=== PATIENT | female | born 1955 | race Two or more races ===

== ENCOUNTER 2019-08-06 03:06 | Inpatient (IN) | payer MEDICARE, MEDICAID ==
[~2019-08-06] VITALS: Ht 154.9 cm; Wt 52.6 kg
[2019-08-06] MEDS ORDERED: ACETAMINOPHEN 325 MG TABLET PO PRN (05:00)
[2019-08-06] MEDS ORDERED: BLOOD SUGAR DIAGNOSTIC 1 EACH STRIP IN ONE (05:00)
[2019-08-06] MEDS ORDERED: MAG HYDROX/AL HYDROX/SIMETH 30 ML UDC PO PRN (05:00)
[2019-08-06] MEDS ORDERED: MAGNESIUM HYDROXIDE 30 ML UDC PO PRN (05:00)
--- NOTE | 2019-08-06 05:51 | NUR ---
Received patient for admission from [facility],alert,oriented x 2 and ambulatory with no s/s of acute distress noted.Will endorse to AM shift RN to continue admission assessment .
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
[2019-08-06 08:00] VITALS: BP 149/98
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
[2019-08-06 16:00] VITALS: BP 136/62
[2019-08-06 16:59] LABS: APPEARANCE,URINE Clear (CLEAR); BILIRUBIN,URINE Negative (NEGATIVE); BLOOD, URINE Negative Ery/uL (NEGATIVE); COLOR,URINE Yellow (YELLOW); KETONES,URINE Negative (NEGATIVE); LEUKOCYTE ESTERASE ,URINE Negative (NEGATIVE); NITRITE, URINE Negative (NEGATIVE); PROTEIN,URINE Negative (NEGATIVE); UGLUCOSE Negative (NEGATIVE); UROBILINOGEN,URINE 0.2 EU/dL (0.2)
[2019-08-06] MEDS ORDERED: LEVO50TA8 PO (18:57)
[2019-08-06] MEDS ORDERED: ATOR10TA PEG (18:57)
[2019-08-06] MEDS ORDERED: QUET150T2 PO (18:57)
[2019-08-06] MEDS ORDERED: BENZ0.5T43 PO (18:57)
[2019-08-06] MEDS ORDERED: METF-440 PO (18:57)
[2019-08-06] MEDS ORDERED: BUSP5TAB3 PO (18:57)
[2019-08-06] MEDS ORDERED: BUSP10TA3 PO (18:57)
[2019-08-06] MEDS ORDERED: DIVA250T47 PO (18:57)
[2019-08-06] MEDS ORDERED: DORZ10DR11 EACHEYE (18:58)
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
--- NOTE | 2019-08-06 19:52 | NUR ---
GPS/RN-NOTES RECEIVED T.O ORDER FROM DR. VANG OF SEROQUEL 300MG P.O QPM,COGENTIN 0.5MG P.O BID,BUSPAR 5MG P.O QPM, BUSPAR 10MG P.O QAM ,DEPAKOTE 750MG P.O QPM AND RESTORIL 7.5MG P.O QHS PRN.
[2019-08-06 20:01] VITALS: BP 132/79
--- NOTE | 2019-08-06 20:06 | NUR ---
[facility] PAGED FOR DOCTOR ADJUSTER LEADER. PATIENT HAS ABD BINDER SHE WEARS AT HOME FOR ABD HERNIA. NO ORDER TO CONTINUE ABD BINDER. DR. PADGETT CALLED BACK. ORDER RECIEVED FOR ABD BINDER. STATES NO NEED FOR ONE TO ONE BUT TO CONTINUE LINE OF SITE FOR TREATMENT.
--- NOTE | 2019-08-06 20:16 | NUR ---
GPS/RN-NOTES PATIENT LAYING IN BED AWAKE,ALERT NO ACUTE DISTRESS NOTED. ENDORSE TO NIGHT NURSE FOR CONTINUITY OF CARE AND MONITORING FOR SAFETY AND BEHAVIOR.
[2019-08-06] MEDS ORDERED: QUETIAPINE FUMARATE 100 MG TABLET PO SCH (20:30)
[2019-08-06] MEDS ORDERED: DIVALPROEX SODIUM 500 MG TABLET.DR PO SCH (20:30)
[2019-08-06] MEDS ORDERED: TEMAZEPAM 7.5 MG CAPSULE PO PRN (20:30)
[2019-08-06] MEDS ORDERED: busPIRone 5 MG TABLET PO SCH (20:30)
[2019-08-06] MEDS: BENZTROPINE MESYLATE (1 MG) 1 MG TABLET PO SCH (21:03)
--- NOTE | 2019-08-06 21:04 | NUR ---
PATIENT REQUESTED TEMAZEPAM PRN TEMAZEPAM 7.5MG ADMINISTERED PRN ORDERED.
[2019-08-07 07:47] LABS: CHOLESTEROL 102 mg/dL (<200); HDL CHOLESTEROL 39 mg/dL (40-60); LDL 51 mg/dL (0-99); TRIGLYCERIDES 69 mg/dL (30-150)
[2019-08-07 08:00] VITALS: BP 130/83
[2019-08-07] MEDS: DIVALPROEX SODIUM 250 MG TABLET.DR PO SCH ×2 (08:56→16:38)
[2019-08-07] MEDS: BENZTROPINE MESYLATE (1 MG) 1 MG TABLET PO SCH ×2 (08:56→16:37)
[2019-08-07] MEDS: busPIRone 5 MG TABLET PO SCH ×4 (08:56→21:33)
[2019-08-07] MEDS: QUETIAPINE FUMARATE 100 MG TABLET PO SCH ×3 (08:56→21:36)
--- NOTE | 2019-08-07 11:54 | NUR ---
Individual Intervention: Pt stated that she wanted to speak to the SW about her medications and treatment plan. SW stated that she does not want to return to her home with her brother because he does not want her to be there. SW stated that she has not had the chance to speak to her brother yet. SW stated that she would keep her updated regarding the discharge plan.
--- NOTE | 2019-08-07 15:05 | NUR ---
Family Contact: SW spoke to the pts brother, Franc ([phone]), and he stated that he would like the pt to return to their home as he had promised his mother. He stated that he would like the pts medications to be adjusted and that he would not accept her back at their home until she is considered to be stable. ROBERTO stated that we would not discharge the pt while she is unstable.
--- NOTE | 2019-08-07 15:32 | NUR ---
Initial Discharge Plan: Pt currently resides at her home with her brother, Franc ([phone]), located at [address] [place] [address]. Per pt, she is uncertain about where she will be discharged to. SW will work with the pt and the MD regarding appropriate discharge planning. SW will form a safe and proper discharge plan.
[2019-08-07 16:00] VITALS: BP 127/56
[2019-08-07 20:06] VITALS: BP 126/77
[2019-08-08 08:00] VITALS: BP 124/74
[2019-08-08] MEDS: busPIRone 5 MG TABLET PO SCH ×4 (09:34→21:23)
[2019-08-08] MEDS: QUETIAPINE FUMARATE 100 MG TABLET PO SCH ×3 (09:35→21:23)
[2019-08-08] MEDS: BENZTROPINE MESYLATE (1 MG) 1 MG TABLET PO SCH ×2 (09:35→16:26)
[2019-08-08] MEDS: DIVALPROEX SODIUM 250 MG TABLET.DR PO SCH ×2 (09:35→16:27)
[2019-08-08 16:00] VITALS: BP 103/57
[2019-08-08 20:50] VITALS: BP 129/72
--- NOTE | 2019-08-09 07:30 | NUR ---
INITAL PT RESTING QUIETLY RESPIRATION EVEN NO DISTRESS NOTED WILL CONTINUE TO MONITOR
[2019-08-09 08:00] VITALS: BP 134/75
[2019-08-09] MEDS: busPIRone 5 MG TABLET PO SCH ×4 (08:56→21:02)
[2019-08-09] MEDS: DIVALPROEX SODIUM 250 MG TABLET.DR PO SCH ×2 (08:56→17:06)
[2019-08-09] MEDS: QUETIAPINE FUMARATE 100 MG TABLET PO SCH ×3 (08:57→21:01)
[2019-08-09] MEDS: BENZTROPINE MESYLATE (1 MG) 1 MG TABLET PO SCH ×2 (08:57→17:06)
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
--- NOTE | 2019-08-09 15:12 | NUR ---
Group Note: Pt attended group therapy session on 08/09/19 at 2:30pm discussing goals for while they are in the hospital and after discharge but was not engaged and did not participate due to mental instability and presenting with labile mood.
[2019-08-09 16:00] VITALS: BP 127/69
--- NOTE | 2019-08-09 17:59 | NUR ---
MEDICATION PT REFUSED ALL 1700 MEDICATIONS ASKED SEVERAL TIMES. PT UNABLE TO FOCUS EXTREMELY ANXIOUS AND THINKS SHE IS TAKING TO MANY MEDICATIONS THAT ARE MAKING HER CRAZY.
[2019-08-09 20:53] VITALS: BP 148/86
[2019-08-10 08:00] VITALS: BP 118/92
[2019-08-10] MEDS: QUETIAPINE FUMARATE 100 MG TABLET PO SCH ×3 (08:21→21:21)
[2019-08-10] MEDS: BENZTROPINE MESYLATE (1 MG) 1 MG TABLET PO SCH ×2 (08:24→16:33)
[2019-08-10] MEDS: DIVALPROEX SODIUM 250 MG TABLET.DR PO SCH ×2 (08:24→16:34)
[2019-08-10] MEDS: busPIRone 5 MG TABLET PO SCH ×4 (08:26→21:22)
[2019-08-10 16:25] VITALS: BP 138/73
[2019-08-10 21:03] VITALS: BP 143/93
[2019-08-11 08:00] VITALS: BP 110/64
[2019-08-11] MEDS: DIVALPROEX SODIUM 250 MG TABLET.DR PO SCH ×2 (08:49→17:14)
[2019-08-11] MEDS: QUETIAPINE FUMARATE 100 MG TABLET PO SCH ×3 (08:49→21:10)
[2019-08-11] MEDS: BENZTROPINE MESYLATE (1 MG) 1 MG TABLET PO SCH ×2 (08:49→17:15)
[2019-08-11] MEDS: busPIRone 5 MG TABLET PO SCH ×4 (08:50→21:10)
[2019-08-11] MEDS ORDERED: DEXTROSE 50%-WATER 50 ML DISP.SYRIN IV PRN (09:30)
[2019-08-11] MEDS: BLOOD SUGAR DIAGNOSTIC 1 EACH STRIP IN SCH ×3 (12:28→21:50)
[2019-08-11] MEDS: INSULIN REGULAR, HUMAN 100 UNIT/ML 3 ML VIAL SQ PRN ×2 (12:33→21:50)
[2019-08-11 16:04] VITALS: BP 147/94
[2019-08-11] MEDS ORDERED: TIMOLOL MAL/DORZOLAM HCL OPHTH 10 ML BOTTLE EACHEYE SCH (17:00)
[2019-08-11] MEDS: TIMOLOL 0.5% SOLN OPHTH 5 ML BOTTLE EACHEYE SCH (17:15)
[2019-08-11] MEDS: DORZOLAMIDE OPTH 2% 10 ML BOTTLE EACHEYE SCH (17:15)
[2019-08-11 19:54] VITALS: BP 130/76
--- NOTE | 2019-08-11 21:51 | NUR ---
RN NOTES : PT. BLOOD SUGAR HS # 153 MG DL , PT. REFUSED TO TAKING INSULIN REGULAR , ENCOURAGED X3 BUT PT. STILL REFUSED , PER PT. GIVE ME WATER TO DRINK.
[2019-08-12 07:23] LABS: BASOPHILS % (AUTO) 0.9 % (0.0-2.0); EOSINOPHILS % (AUTO) 6.1 % (0.0-6.0); HEMATOCRIT 41 % (33-45); HEMOGLOBIN 13.6 g/dL (11.5-14.8); LYMPHOCYTES # (AUTO) 1.7 /CMM (0.8-4.8); LYMPHOCYTES % (AUTO) 35.4 % (20.0-44.0); MEAN CORPUSCULAR HGB CONC 34 g/dl (31.0-36.0); MEAN CORPUSCULAR VOLUME 99 fL (82-100); MONOCYTES # (AUTO) 0.4 /CMM (0.1-1.30); MONOCYTES % (AUTO) 9.3 % (2.0-12.0); NEUTROPHILS # (AUTO) 2.3 /CMM (1.8-8.9); NEUTROPHILS % (AUTO) 48.3 % (43.0-81.0); PLATELET COUNT (AUTO) 152 /CMM (150-450); RED BLOOD CELL COUNT(AUTO) 4.09 MIL/uL (4.0-5.2); WHITE BLOOD COUNT (AUTO) 4.7 K/uL (4.3-11.0)
[2019-08-12] MEDS: BLOOD SUGAR DIAGNOSTIC 1 EACH STRIP IN SCH ×4 (07:30→22:01)
[2019-08-12 07:36] LABS: CALCIUM, SERUM 9.9 mg/dL (8.5-10.1); CREATININE 0.7 mg/dL (0.6-1.3); MAGNESIUM 1.7 mg/dL (1.8-2.4); PHOSPHORUS 3.4 mg/dL (2.5-4.9); POTASSIUM 4.2 mmol/L (3.5-5.1)
[2019-08-12 07:51] LABS: THYROID STIMULATING HORMONE 3.096 uIU/mL (0.358-3.74)
[2019-08-12 08:00] VITALS: BP 147/89
[2019-08-12] MEDS ORDERED: MAGNESIUM OXIDE 400 MG TABLET PO ONE (08:30)
[2019-08-12] MEDS: BENZTROPINE MESYLATE (1 MG) 1 MG TABLET PO SCH ×2 (08:50→16:39)
[2019-08-12] MEDS: QUETIAPINE FUMARATE 100 MG TABLET PO SCH ×3 (08:51→21:01)
[2019-08-12] MEDS: LEVOTHYROXINE SODIUM 50 MCG TABLET PO SCH (08:51)
[2019-08-12] MEDS: DIVALPROEX SODIUM 250 MG TABLET.DR PO SCH ×2 (08:51→16:39)
[2019-08-12] MEDS: DORZOLAMIDE OPTH 2% 10 ML BOTTLE EACHEYE SCH ×2 (09:00→16:52)
[2019-08-12] MEDS: TIMOLOL 0.5% SOLN OPHTH 5 ML BOTTLE EACHEYE SCH ×2 (09:00→16:51)
--- NOTE | 2019-08-12 09:00 | NUR ---
RN NOTES PATIENT BS IS 260 MG/DL. PATIENT REFUSED INSULIN COVERAGE AFTER EXPLAINING THE RISKS AND BENEFITS X3. WILL CONTINUE TO MONITOR.
[2019-08-12] MEDS: ATORVASTATIN 10 MG TABLET PEG SCH (09:33)
[2019-08-12] MEDS: busPIRone 5 MG TABLET PO SCH ×3 (09:41→16:40)
[2019-08-12] MEDS: INSULIN REGULAR, HUMAN 100 UNIT/ML 3 ML VIAL SQ PRN ×2 (12:00→22:01)
--- NOTE | 2019-08-12 15:43 | NUR ---
GROUP NOTE: SW encouraged pt to participate in group on this present day discussing "discharge planning." Pt was present but was crying throughout the session. Pt does not demonstrate mental stability and was unable to engage in group due her episodes of lability.
[2019-08-12 16:00] VITALS: BP 150/81
--- NOTE | 2019-08-12 16:19 | NUR ---
Individual Intervention: SW spoke to the pt about her discharge plan and she stated that she was not sure if she can return to living with her brother. The SW stated that he had already agreed but the pt stated that she wanted him to treat her better. SW stated that she can be discharged to a SNF if she was unsure and the pt stated that she was still not sure.
[2019-08-12 20:33] VITALS: BP 141/73
--- NOTE | 2019-08-12 22:08 | NUR ---
RN NOTES : PT. BLOOD SUGAR HS # 231 MG DL , PT. REFUSED TO TAKING INSULIN REGULAR , ENCOURAGED X3 BUT PT. STILL REFUSED , PER PT. NO LET ME SLEEP. CONTINUE TO MONITOR.
[2019-08-13] MEDS: LEVOTHYROXINE SODIUM 50 MCG TABLET PO SCH (07:30)
[2019-08-13 08:00] VITALS: BP 135/67
[2019-08-13] MEDS: BLOOD SUGAR DIAGNOSTIC 1 EACH STRIP IN SCH ×4 (08:11→21:42)
[2019-08-13] MEDS: DIVALPROEX SODIUM 250 MG TABLET.DR PO SCH ×2 (08:28→16:49)
[2019-08-13] MEDS: busPIRone 5 MG TABLET PO SCH ×4 (08:28→16:50)
[2019-08-13] MEDS: ATORVASTATIN 10 MG TABLET PEG SCH (08:47)
[2019-08-13] MEDS: QUETIAPINE FUMARATE 100 MG TABLET PO SCH ×3 (08:47→21:16)
[2019-08-13] MEDS: BENZTROPINE MESYLATE (1 MG) 1 MG TABLET PO SCH ×2 (08:47→16:54)
[2019-08-13] MEDS: DORZOLAMIDE OPTH 2% 10 ML BOTTLE EACHEYE SCH ×2 (09:00→16:57)
[2019-08-13] MEDS: TIMOLOL 0.5% SOLN OPHTH 5 ML BOTTLE EACHEYE SCH ×2 (09:00→16:50)
--- NOTE | 2019-08-13 09:37 | NUR ---
SNF Referral: SW faxed a referral to [facility] with attention to Chuy Solano and [place] to the fax number: [phone].
[2019-08-13] MEDS: INSULIN REGULAR, HUMAN 100 UNIT/ML 3 ML VIAL SQ PRN (11:57)
--- NOTE | 2019-08-13 13:25 | NUR ---
gps back tacker: notes pt refused buspar 15mg po x 3.
--- NOTE | 2019-08-13 14:48 | NUR ---
SNF Referral: Xiomara ([phone]) from [facility] contacted the SW and stated that the pt was accepted to their facility.
[2019-08-13 16:00] VITALS: BP 140/77
[2019-08-13 20:28] VITALS: BP 145/86
--- NOTE | 2019-08-13 21:42 | NUR ---
GPS RN NOTES: PT BLOOD SUGAR WAS 146 MG/DL. PT REFUSED REGULAR INSULIN PER SLIDING SCALE OFFERED X3 EXPLAINED RISKS AND BENEFITS BUT PT STILL REFUSED. PT STATED, " I DON'T NEED ANYTHING" .
[2019-08-14] MEDS: INSULIN REGULAR, HUMAN 100 UNIT/ML 3 ML VIAL SQ PRN ×2 (01:58→21:51)
[2019-08-14] MEDS: LEVOTHYROXINE SODIUM 50 MCG TABLET PO SCH ×2 (07:30→08:08)
[2019-08-14] MEDS: BLOOD SUGAR DIAGNOSTIC 1 EACH STRIP IN SCH ×5 (07:30→21:22)
--- NOTE | 2019-08-14 07:30 | NUR ---
RN NOTE: PATIENT REFUSED 0730 ACCU CHECK x3. RISK AND BENEFITS EXPLAINED.
[2019-08-14 08:00] VITALS: BP 138/90
[2019-08-14] MEDS: QUETIAPINE FUMARATE 100 MG TABLET PO SCH ×4 (08:08→21:16)
[2019-08-14] MEDS: BENZTROPINE MESYLATE (1 MG) 1 MG TABLET PO SCH ×3 (08:08→17:54)
[2019-08-14] MEDS: busPIRone 5 MG TABLET PO SCH ×5 (08:09→17:54)
[2019-08-14] MEDS: TIMOLOL 0.5% SOLN OPHTH 5 ML BOTTLE EACHEYE SCH ×3 (08:09→17:00)
[2019-08-14] MEDS: ATORVASTATIN 10 MG TABLET PEG SCH ×2 (08:09→09:00)
[2019-08-14] MEDS: DORZOLAMIDE OPTH 2% 10 ML BOTTLE EACHEYE SCH ×3 (08:09→17:00)
[2019-08-14] MEDS: DIVALPROEX SODIUM 250 MG TABLET.DR PO SCH ×3 (08:09→17:54)
--- NOTE | 2019-08-14 12:00 | NUR ---
GROUP NOTE: SW encouraged pt to participate in group on this present day discussing "positive coping skills." Pt was present but thought content was disorganized and was not making sense.
--- NOTE | 2019-08-14 15:58 | NUR ---
Group Note: SW encouraged pt to participate in group on 08/14/19 at 2pm discussing "discharge planning." Pt was present but was crying throughout the session. Pt does not demonstrate mental stability and was unable to engage in group due her episodes of lability.
[2019-08-14 16:00] VITALS: BP 137/57
--- NOTE | 2019-08-14 17:30 | NUR ---
RN NOTE: 1730 BLOOD SUGAR CHECK OF 154 mg/dL. REGULAR INSULIN 2 UNITS PER SLIDING SCALE. PATIENT REFUSED INSULIN x3. RISK AND BENEFITS EXPLAINED.
--- NOTE | 2019-08-14 19:10 | NUR ---
RN NOTE: PATIENT REFUSED TO WEAR ID BAND. RISK AND BENEFITS EXPLAINED.
[2019-08-14 20:29] VITALS: BP 151/82
--- NOTE | 2019-08-14 21:22 | NUR ---
GPS RN NOTES: PATIENT BLOOD SUGAR WAS 165MG/DL. PT REFUSED REGULAR INSULIN PER SLIDING SCALE. OFFERED X3, DESPITE OF EXPLANATION THE IMPORTANCE PT STILL REFUSED. PT STATED, " NO, I DON'T NEED IT" .
[2019-08-15 08:00] VITALS: BP 113/70
[2019-08-15] MEDS: BLOOD SUGAR DIAGNOSTIC 1 EACH STRIP IN SCH ×4 (08:26→21:16)
[2019-08-15] MEDS: DIVALPROEX SODIUM 250 MG TABLET.DR PO SCH ×2 (08:27→17:00)
[2019-08-15] MEDS: LEVOTHYROXINE SODIUM 50 MCG TABLET PO SCH (08:27)
[2019-08-15] MEDS: QUETIAPINE FUMARATE 100 MG TABLET PO SCH ×3 (08:27→21:16)
[2019-08-15] MEDS: DORZOLAMIDE OPTH 2% 10 ML BOTTLE EACHEYE SCH ×2 (08:27→17:00)
[2019-08-15] MEDS: TIMOLOL 0.5% SOLN OPHTH 5 ML BOTTLE EACHEYE SCH ×2 (08:27→17:00)
[2019-08-15] MEDS: ATORVASTATIN 10 MG TABLET PEG SCH (09:00)
[2019-08-15] MEDS: BENZTROPINE MESYLATE (1 MG) 1 MG TABLET PO SCH ×2 (09:00→17:00)
[2019-08-15] MEDS: busPIRone 5 MG TABLET PO SCH ×3 (09:00→17:00)
--- NOTE | 2019-08-15 09:50 | NUR ---
RN NOTE: AT 0940 PATIENT WAS IN SHOWER ROOM AND NURSING STAFF HEARD PATIENT SHOUTING. UPON ASSESSMENT, PATIENT WAS SITTING ON THE FLOOR WEARING HER SHIRT AND PANTS AND STATES "I WAS TRYING TO PUT MY BINDER ON" PER WELDER FITTER ARC, ASSISTANCE WAS OFFERED TO PATIENT WHILE IN SHOWER ROOM BUT PATIENT REFUSED ASSISTANCE. NURSING STAFF ASSISTED PATIENT BACK TO HER ROOM AND OFFERED TO HELP HER PUT ON UNDERWEAR AND SOCKS, PATIENT REFUSED ASSISTANCE AND STATES "I CAN DO IT MYSELF" PATIENT STATES SHE FELL AND HIT HER HEAD. BODY CHECK DONE. SKIN INTACT, NO REDNESS OR DISCOLORATION NOTED. ABLE TO MOVE UPPER EXTREMITIES AND LOWER EXTREMITIES WITHOUT DIFFICULTY. C/O PAIN TO BACK OF HER HEAD. VS BP 143/100, P114, R19 T98.0 02 SAT 96%. FAMILY MADE AWARE BY FINANCE ADMIN. MEDICAL MD WAS PAGED AND WAITING FOR CALL BACK.
--- NOTE | 2019-08-15 10:04 | NUR ---
Family Contact: ROBERTO spoke to the pts brother, Franc ([phone]), and informed that the pt fell in the shower around 9:40AM and when she shouted for assistance the nurses saw that she was sitting on the floor. ROBERTO also informed him that the pt has a discharge date set for tomorrow to [facility] and he stated that he wanted to speak to the MD first.
--- NOTE | 2019-08-15 10:40 | NUR ---
DR. GARCIA WAS NOTIFIED ABOUT THE FALL AND ORDERED CT OF THE HEAD WITHOUT CONTRAST AND FOR PT EVAL. Addendum: 08/15/19 at 1535 by ANNA GAONA RN DR. COTTON COVERING FOR TAJ CASTELLANOS MADE AWARE OF THE FALL INCIDENT.
--- NOTE | 2019-08-15 12:09 | NUR ---
RN NOTE: 1200 BLOOD SUGAR CHECK OF 210 mg/dL PER SLIDING SCALE GIVE 4 UNITS OF REGULAR INSULIN. PATIENT REFUSED INSULIN x3. RISK AND BENEFITS EXPLAINED.
--- NOTE | 2019-08-15 15:54 | NUR ---
Group Note: SW encouraged pt to participate in group on 08/15/19 at 2pm discussing "social supports." Pt was present but was crying throughout the session. Pt does not demonstrate mental stability and was unable to engage in group due her episodes of lability.
[2019-08-15 16:00] VITALS: BP 142/86
--- NOTE | 2019-08-15 18:03 | NUR ---
RN NOTE: PATIENT REFUSED 1700 PO MEDICATIONS AND INSULIN PER SLIDING SCALE. RISK AND BENEFITS EXPLAINED.
[2019-08-15 20:24] VITALS: BP 148/85
[2019-08-15] MEDS: INSULIN REGULAR, HUMAN 100 UNIT/ML 3 ML VIAL SQ PRN (21:23)
[2019-08-16] MEDS: BLOOD SUGAR DIAGNOSTIC 1 EACH STRIP IN SCH ×2 (07:30→12:14)
[2019-08-16] MEDS: busPIRone 5 MG TABLET PO SCH ×2 (10:00→12:21)
[2019-08-16] MEDS: LEVOTHYROXINE SODIUM 50 MCG TABLET PO SCH (10:00)
[2019-08-16] MEDS: ATORVASTATIN 10 MG TABLET PEG SCH (10:00)
[2019-08-16] MEDS: DORZOLAMIDE OPTH 2% 10 ML BOTTLE EACHEYE SCH (10:01)
[2019-08-16] MEDS: TIMOLOL 0.5% SOLN OPHTH 5 ML BOTTLE EACHEYE SCH (10:01)
[2019-08-16] MEDS: DIVALPROEX SODIUM 250 MG TABLET.DR PO SCH (10:02)
[2019-08-16] MEDS: QUETIAPINE FUMARATE 100 MG TABLET PO SCH (10:02)
[2019-08-16] MEDS: BENZTROPINE MESYLATE (1 MG) 1 MG TABLET PO SCH (10:03)
--- NOTE | 2019-08-16 10:19 | NUR ---
Family Contact: SW called the pts brother, Franc ([phone]), and informed him that she was aware that the MD called him regarding the discharge. SW provided the pts brother with name, address and phone number of the facility and informed him that she would be transferred within the next hour.
[2019-08-16] MEDS: INSULIN REGULAR, HUMAN 100 UNIT/ML 3 ML VIAL SQ PRN (12:21)
--- NOTE | 2019-08-16 13:00 | NUR ---
GPS RN NOTES Patient discharged to [facility] at this time. Patient in stable condition. VS stable with no acute distress noted. Breathing even and unlabored on room air with no respiratory distress. Denies pain. Compliant with medication management. Cooperative with plan of care. Psychiatric treatment plans met. Medical treatment plans deferred for continual monitoring. Denies SI/HI visual and auditory hallucinations at time of discharge. Patient refused skin assessment. Medication reconciliation and discharge instructions reviewed and explained to Patient. Patient verbalized understanding. All belongings with Patient. Patient will follow up with PCP. Patient picked up by ambulance transport. Report given to Juliet WHIPPLE.
--- NOTE | 2019-08-16 14:58 | NUR ---
Discharge Note: Pt was discharged to [facility] (SNF) located at [address] [place] [address], . Pt was transported via [facility] 11AM. Pts brother, Franc ([phone]), was informed of the discharge. Upon discharge, the pt appeared to be in an anxious mood and presented with a distressed affect. Pt denied both suicidal and homicidal ideation as well auditory and visual hallucinations. Pt will be under her psychiatrist, Dr. Santiago, [place] at [address] [place] [address]; and customer manager, Dr. Sandhu, located at [address], [address], [place] [address]; .
== END 2019-08-16 13:15 | DRG 885 ==
LOC: GPS 04:12
PROVIDERS: ADMIT Psychiatry & Neurology Psychiatry; ATTEND Nurse Practitioner Acute Care
DX: F25.9 Schizoaffective disorder, unspecified (principal); F29 Unspecified psychosis not due to a substance or known physiological condition; F41.9 Anxiety disorder, unspecified; E03.9 Hypothyroidism, unspecified; E83.42 Hypomagnesemia; Z79.84 Long term (current) use of oral hypoglycemic drugs; Z73.6 Limitation of activities due to disability; E11.9 Type 2 diabetes mellitus without complications
CPT/HCPCS: 36415; 70450-TC; 80048-TC; 80061-TC; 81000-TC; 82962-TC; 83735-TC; 84100-TC; 84439-TC; 84443-TC; 85025-TC; 87081-TC; 97116-TC; 97530-TC; J1815